=== PATIENT | female | born 1990 | race African-American/Black ===

== ENCOUNTER 2021-09-21 13:51 | Observation (INO) | payer OTHER ==
[~2021-09-21] VITALS: Ht 165.1 cm; Wt 126.9 kg
--- NOTE | 2021-09-21 15:19 | PHYS DOC ---
Past Medical History Past Surgical History: Other Additional Past Surgical Histo: Hernia repair General Adult EDM: Chief Complaint: ABDOMINAL PAIN HPI: HPI: Patient is a 31 year old female here with report of abdominal pain, which began yesterday. The pain initially began in the periumbilical area, now has traveled to the right lower quadrant. She reports nausea and vomiting and anorexia. No constipation or diarrhea reported. No urinary symptoms reported. No fevers or chills reported. She denies any trauma or injury to the area. She denies vaginal discharge or bleeding. She has irregular menses at baseline, last men strual period was in July. She has an IUD, it sounds like a copper IUD. She repeats having a previous umbilical hernia procedure when she was a child. No previous history of bowel obstruction. Review of Systems: Review of Systems: Constitutional: Denies fever or chills. [] HENT: Denies nasal congestion or sore throat. [] Respiratory: Denies cough or shortness of breath. [] Cardiovascular: Denies chest pain or edema. [] GI: Abdominal pain, nausea, vomiting. Denies constipation or diarrhea : Denies urinary symptoms. Musculoskeletal: Denies back pain or joint pain. [] Integument: Denies rash. [] Neurologic: Denies headache, focal weakness or sensory changes. [] Psychiatric: Denies depression or anxiety. [] Heart Score: C/O Chest Pain: No Risk Factors: Risk Factors: DM, Current or recent (<one month) smoker, HTN, HLP, family history of CAD, obesity. Risk Scores: Score 0 - 3: 2.5% MACE over next 6 weeks - Discharge Home Score 4 - 6: 20.3% MACE over next 6 weeks - Admit for Clinical Observation Score 7 - 10: 72.7% MACE over next 6 weeks - Early Invasive Strategies Allergies: Allergies: Allergies Coded Allergies Type Severity Reaction Last Updated Verified No Known Drug Allergies 09/21/21 No Physical Exam: PE: Constitutional: Well developed, well nourished, no acute distress, non-toxic appearance. [] HENT: Normocephalic, atraumatic Eyes: Conjunctiva normal, no discharge. Sclera are anicteric. Neck: Normal range of motion, no tenderness, supple, no stridor. Trachea is midline. Cardiovascular:Heart rate regular rhythm, +2 radial and +2 posterior tibial pulses bilaterally. Lungs & Thorax: Bilateral breath sounds clear to auscultation [] Abdomen: Abdomen is obese, soft, nondistended. Exquisite tenderness to palpation in the right lower quadrant at McBurney's, mild rebound tenderness is noted. Guarding noted. No palpable masses organomegaly. Normal bowel sounds noted. No CVA tenderness. Positive Rovsing sign. Skin: Warm, dry, no erythema, no rash. No jaundice. Back: No tenderness, no CVA tenderness. [] Extremities: No tenderness, no cyanosis, no clubbing, ROM intact, no edema. [] Neurologic: Alert and oriented X 3, normal motor function, normal sensory function, no focal deficits noted. [] Psychologic: Affect normal, judgement normal, mood normal. She is pleasant and cooperative. Current Patient Data: Vital Signs: Vital Signs Date Time Temp Pulse Resp B/P (MAP) Pulse Ox O2 Delivery O2 Flow Rate FiO2 09/21/21 14:02 98.3 101 18 134/81 (98) 96 Room Air 98.3 EKG: EKG: [] Radiology/Procedures: Radiology/Procedures: IMAGING REPORT Signed PATIENT: BRITTANY SMITH ACCOUNT: [id number] : 1990 LOCATION: ER AGE: 31 SEX: F EXAM STATUS: REG ER ORD. PHYSICIAN: RADHA CASTELLANO DO REASON: RLQ abdominal pain PROCEDURE: CT ABD PELV W/ IV CONTRST ONLY EXAM: Abdomen and pelvis CT with intravenous contrast. HISTORY: Right lower quadrant pain. TECHNIQUE: Computed tomographic images of the abdomen and pelvis were obtained following the administration of intravenous contrast. Multiplanar reformatting was performed. *One or more of the following individualized dose reduction techniques were utilized for this examination: 1. Automated exposure control. 2. Adjustment of the mA and/or kV according to patient size. 3. Use of iterative reconstruction technique. COMPARISON: None. FINDINGS: Evaluation of the lower thorax demonstrates no infiltrate or pleural effusion. There is a 7 mm cyst within the right hepatic lobe. There is no suspicious hepatic lesion. The gallbladder, pancreas, spleen, stomach, adrenal glands and kidneys are unremarkable. The appendix is mildly dilated to a caliber of 9 mm and there is slight stranding within the surrounding periappendiceal fat. There is also trace fluid within the right lower quadrant. This is superimposed on stranding within inferior peritoneum. There is no evidence of bowel obstruction. There is distal colonic diverticulosis. There is no convincing diverticulitis. The bladder is unremarkable. There is a calcification within the right hemipelvis likely due to a phlebolith. There is an IUD within the uterine cavity. There are multiple ovarian follicles and there is trace pelvic free fluid. The aorta is normal in caliber. There is no pathologically enlarged lymph node. There is degenerative change at L5-S1, with associated foraminal and central canal stenosis. IMPRESSION: Mildly dilated appendix with mild surrounding fatty stranding and trace fluid. This can be seen with acute appendicitis. However, there is gas within the appendiceal lumen which is not typical for acute appendicitis. Given the presence of diffuse peritoneal stranding within the mid and lower abdomen, the possibility of acute peritonitis with secondary inflammatory changes involving the appendix is not excluded. Correlation with laboratory values may be useful. Electronically signed by: Carole Burnett MD (09/21/2021 5:07 PM) [facility] DICTATED and SIGNED BY: CAROLE BURNETT MD DATE: 09/21/21 [id number] Course & Med Decision Making: Course & Med Decision Making Pertinent Labs and Imaging studies reviewed. (See chart for details) The patient is given IV fluids, IV Zofran, IV morphine and IV Toradol. CT indicates findings of possible appendicitis, clinically she has appendicitis. She is kept n.p.o. I ordered IV Zosyn. I explained all of the findings, differential diagnosis and plan of care with her. I recommend hospitalization, general surgery consult. She is comfortable with this. I spoke with Dr. Chavez of general surgery, who agrees with the plan of care. She is accepted for admission by Dr. Harris. Gladis Disclaimer: Gladis Disclaimer: This electronic medical record was generated, in whole or in part, using a voice recognition dictation system. Departure Departure Impression: Primary Impression: Acute appendicitis Qualified Codes: K35.80 - Unspecified acute appendicitis Disposition: ADMITTED INPATIENT Admitting Physician: KYE (Dr. Harris) Condition: STABLE Referrals: NO PCP (PCP) RADHA CASTELLANO DO Sep 21, 2021 15:19
[2021-09-21 15:40] LABS: BILIRUBIN,URINE NEGATIVE (NEG); CLARITY,URINE CLEAR; COLOR,URINE AMBER; NITRITE,URINE NEGATIVE (NEG); PH,URINE 6.5 (<5.0-8.0); PROTEIN,URINE NEGATIVE (NEG-TRACE)
[2021-09-21] MEDS ORDERED: MORPHINE SULFATE 4 MG/ML INJ. IVP ONE (15:45)
[2021-09-21] MEDS ORDERED: IV NORMAL SALINE 1000ML BAG 1,000 ML IV ONE (15:45)
[2021-09-21] MEDS ORDERED: ONDANSETRON PF 4 MG/2 ML VIAL. IVP ONE (15:45)
[2021-09-21 15:53] LABS: BACTERIA,URINE FEW /HPF (0-FEW)
[2021-09-21 15:53] LABS: BASO # 0.1 x10^3/uL (0.0-0.2); BASO % 1 % (0-3); EOS # 0.2 x10^3/uL (0.0-0.7); EOS % 2 % (0-3); HEMATOCRIT 38.9 % (36.0-47.0); HEMOGLOBIN 12.5 g/dL (12.0-15.5); LYMPH # 2.1 x10^3/uL (1.0-4.8); LYMPH % 19 % (24-48); MEAN CORPUSCULAR HEMOGLOBIN 27 pg (25-35); MEAN CORPUSCULAR HGB CONC 32 g/dL (31-37); MEAN CORPUSCULAR VOLUME 83 fL (79-100); MONO # 0.9 x10^3/uL (0.0-1.1); MONO % 8 % (0-9); NEUT % 71 % (31-73); PLATELET COUNT 225 x10^3/uL (140-400); RED BLOOD COUNT 4.68 x10^6/uL (3.50-5.40); RED CELL DISTRIBUTION WIDTH 15.3 % (11.5-14.5); WHITE BLOOD COUNT 11.3 x10^3/uL (4.0-11.0)
[2021-09-21 15:56] LABS: U PREG PATIENT NEGATIVE (NEG)
[2021-09-21] MEDS ORDERED: IOHEXOL 300 MG/ML 100ML VIAL. IV ONE (16:00)
[2021-09-21] MEDS ORDERED: CONTRAST GIVEN. MC PRN (16:15)
[2021-09-21 16:41] LABS: CALCIUM 8.3 mg/dL (8.5-10.1); CREATININE 0.8 mg/dL (0.6-1.0); POTASSIUM 3.7 mmol/L (3.5-5.1)
[2021-09-21 16:46] LABS: ALBUMIN 3.1 g/dL (3.4-5.0); ALBUMIN/GLOBULIN RATIO 0.7 (1.0-1.7); TOTAL BILIRUBIN 0.6 mg/dL (0.2-1.0); TOTAL PROTEIN 7.4 g/dL (6.4-8.2)
--- NOTE | 2021-09-21 17:10 | RAD ---
EXAM: Abdomen and pelvis CT with intravenous contrast. HISTORY: Right lower quadrant pain. TECHNIQUE: Computed tomographic images of the abdomen and pelvis were obtained following the administ ration of intravenous contrast. Multiplanar reformatting was performed. *One or more of the following individualized dose reduction techniques were utilized for this examina tion: 1. Automated exposure control. 2. Adjustment of the mA and/or kV according to patient size. 3. Use of iterative reconstruction technique. COMPARISON: None. FINDINGS: Evaluation of the lower thorax demonstrates no infiltrate or pleural effusion. There is a 7 mm cyst within the right hepatic lobe. There is no suspicious hepatic lesion. The gallbladder, pancr eas, spleen, stomach, adrenal glands and kidneys are unremarkable. The appendix is mildly dilated to a caliber of 9 mm and there is slight stranding within the surround ing periappendiceal fat. There is also trace fluid within the right lower quadrant. This is superimpo sed on stranding within inferior peritoneum. There is no evidence of bowel obstruction. There is dist al colonic diverticulosis. There is no convincing diverticulitis. The bladder is unremarkable. There is a calcification within the right hemipelvis likely due to a phl ebolith. There is an IUD within the uterine cavity. There are multiple ovarian follicles and there is trace pelvic free fluid. The aorta is normal in caliber. There is no pathologically enlarged lymph node. There is degenerative change at L5-S1, with associated foraminal and central canal stenosis. IMPRESSION: Mildly dilated appendix with mild surrounding fatty stranding and trace fluid. This can be seen with acute appendicitis. However, there is gas within the appendiceal lumen which is not typi maged for acute appendicitis. Given the presence of diffuse peritoneal stranding within the mid and low er abdomen, the possibility of acute peritonitis with secondary inflammatory changes involving the ap pendix is not excluded. Correlation with laboratory values may be useful. Electronically signed by: Carole Blount MD (09/21/2021 5:07 PM) [facility]
[2021-09-21] MEDS ORDERED: KETOROLAC 15 MG/ML VIAL. IVP ONE (17:30)
[2021-09-21] MEDS ORDERED: PIPERACILLIN/TAZOBACTAM 3.375 GM in IV NORMAL SALINE 50ML 50 ML IV ONE (17:30)
[2021-09-21] MEDS ORDERED: ONDANSETRON PF 4 MG/2 ML VIAL. IVP PRN ×2 (17:45→19:00)
[2021-09-21] MEDS ORDERED: IV DEXTROSE 5 %-0.45 % NACL 1,000 ML IV ONE (18:00)
--- NOTE | 2021-09-21 18:59 | PDOC1 ---
History and Physical Date of Service: DOS: DATE: 09/21/21 TIME: 18:55 Chief Complaint: Chief Complain: Abdominal pain History of Present Illness: HPI: 31-year-old female with her morbid obesity comes in with abdominal pain that began yesterday. Pain started in the periumbilical area and traveled to the right lower quadrant. Endorses anorexia and nausea vomiting. No history of constipation or diarrhea or dysuria. Denies chest pain or fevers or chills or trauma to the abdominal region. Patient does have an IUD. Patient also has an umbilical hernia repair as a child. Past Medical/Surgical History: PMH/PSH: No significant past medical history except for hernia repair as a child Allergies: Allergies: Coded Allergies: No Known Drug Allergies (Unverified , 09/21/21) Family History: Family History: Reviewed with no relevant findings in the chart Social History: Social History: Denies alcohol, tobacco or drug abuse Current Medications: Current Medications Current Medications Sodium Chloride 1,000 ml @ 1,000 mls/hr 1X ONCE IV Last administered on 09/21/21at 15:51; Start 09/21/21 at 15:45; Stop 09/21/21 at 16:44; Status DC Ondansetron HCl (Zofran) 4 mg 1X ONCE IVP Last administered on 09/21/21at 15:54; Start 09/21/21 at 15:45; Stop 09/21/21 at 15:46; Status DC Morphine Sulfate (Morphine Sulfate) 4 mg 1X ONCE IVP Last administered on 09/21/21at 15:55; Start 09/21/21 at 15:45; Stop 09/21/21 at 15:46; Status DC Iohexol (Omnipaque 300 Mg/ml) 75 ml 1X ONCE IV Last administered on 09/21/21at 16:45; Start 09/21/21 at 16:00; Stop 09/21/21 at 16:02; Status DC Info (CONTRAST GIVEN -- Rx MONITORING) 1 each PRN DAILY PRN MC SEE COMMENTS; Start 09/21/21 at 16:15; Stop 09/23/21 at 16:14 Piperacillin Sod/ Tazobactam Sod 3.375 gm/Sodium Chloride 50 ml @ 100 mls/hr 1X ONCE IV Last administered on 09/21/21at 17:45; Start 09/21/21 at 17:30; Stop 09/21/21 at 17:59; Status DC Ketorolac Tromethamine (Toradol 15mg Vial) 15 mg 1X ONCE IVP Last administered on 09/21/21at 17:57; Start 09/21/21 at 17:30; Stop 09/21/21 at 17:31; Status DC Ondansetron HCl (Zofran) 4 mg PRN Q8HRS PRN IVP NAUSEA/VOMITING; Start 09/21/21 at 17:45; Stop 09/22/21 at 17:44 Dextrose/Sodium Chloride 1,000 ml @ 75 mls/hr 1X ONCE IV Last administered on 09/21/21at 18:14; Start 09/21/21 at 18:00; Stop 09/22/21 at 07:19 Morphine Sulfate (Morphine Sulfate) 4 mg PRN Q2HRS PRN IVP PAIN; Start 09/21/21 at 17:45 Piperacillin Sod/ Tazobactam Sod 3.375 gm/Sodium Chloride 50 ml @ 100 mls/hr Q6HRS IV ; Start 09/22/21 at 00:00 ROS: Review of Systems Review of System REVIEW OF SYSTEMS: GENERAL: Denies weakness SKIN: No bruising, hair changes or rashes. EYES: No blurred, double or loss of vision. NOSE AND THROAT: No history of nosebleeds, hoarseness or sore throat. HEART: No history of palpitations, chest pain or shortness of breath on exertion. LUNGS: Denies cough, hemoptysis, wheezing or shortness of breath. GASTROINTESTINAL: Denies changes in appetite, nausea, vomiting, diarrhea or constipation. GENITOURINARY: No history of frequency, urgency, hesitancy or nocturia. NEUROLOGIC: Denies history of numbness, tingling, or tremor. PSYCHIATRIC: No history of panic, anxiety or depression. ENDOCRINE: No history of heat or cold intolerance, polyuria or polydipsia. EXTREMITIES: Denies joint pain, pain on walking or stiffness. Physical Exam: Vital Signs: Vital Signs Date Time Temp Pulse Resp B/P (MAP) Pulse Ox O2 Delivery O2 Flow Rate FiO2 09/21/21 17:54 92 18 145/62 (89) 98 Room Air 09/21/21 14:02 98.3 98.3 Physcial Exam: General: Well developed, well nourished, no acute distress, well appearing HEENT: Pupils equally round and reactive to light, EOMI, no discharge, normal conjunctiva Neck: Supple, no nuchal rigidity, no JVD, trachea midline, no tenderness Cardiac: RRR, no murmurs, no gallops, no rubs Chest/Lungs: CTAB, no wheeze, no rhonchi, no crackles Abdomen: soft, non-distended, no guarding, no peritoneal signs, rebound tenderness. Tenderness to palpation in the right lower quadrant and McBurney's point. There is positive peritoneal signs. Back: No tenderness Extremities: no edema, pulses intact, non-tender,capillary refill <3 sec bilateral upper and lower extremities, Neuro: Alert and oriented x 4, no focal deficits, normal speech Labs: Labs: Laboratory Tests Test 09/21/21 14:40 09/21/21 15:40 09/21/21 16:15 Urine Collection Type Unknown Urine Color Shania Urine Clarity Clear Urine pH 6.5 (<5.0-8.0) Urine Specific [place] >=1.030 (1.000-1.030) Urine Protein Negative mg/dL (NEG-TRACE) Urine Glucose (UA) Negative mg/dL (NEG) Urine Ketones (Stick) Negative mg/dL (NEG) Urine Blood Negative (NEG) Urine Nitrite Negative (NEG) Urine Bilirubin Negative (NEG) Urine Urobilinogen Dipstick 1.0 mg/dL (0.2 mg/dL) Urine Leukocyte Esterase Small (NEG) Urine RBC 1-2 /HPF (0-2) Urine WBC 5-10 /HPF (0-4) Urine Squamous Epithelial Cells Many /LPF Urine Bacteria Few /HPF (0-FEW) Urine Mucus Marked /LPF Urine Test Negative (NEG) White Blood Count 11.3 x10^3/uL (4.0-11.0) Red Blood Count 4.68 x10^6/uL (3.50-5.40) Hemoglobin 12.5 g/dL (12.0-15.5) Hematocrit 38.9 % (36.0-47.0) Mean Corpuscular Volume 83 fL (79-100) Mean Corpuscular Hemoglobin 27 pg (25-35) Mean Corpuscular Hemoglobin Concent 32 g/dL (31-37) Red Cell Distribution Width 15.3 % (11.5-14.5) Platelet Count 225 x10^3/uL (140-400) Neutrophils (%) (Auto) 71 % (31-73) Lymphocytes (%) (Auto) 19 % (24-48) Monocytes (%) (Auto) 8 % (0-9) Eosinophils (%) (Auto) 2 % (0-3) Basophils (%) (Auto) 1 % (0-3) Neutrophils # (Auto) 8.0 x10^3/uL (1.8-7.7) Lymphocytes # (Auto) 2.1 x10^3/uL (1.0-4.8) Monocytes # (Auto) 0.9 x10^3/uL (0.0-1.1) Eosinophils # (Auto) 0.2 x10^3/uL (0.0-0.7) Basophils # (Auto) 0.1 x10^3/uL (0.0-0.2) Sodium Level 137 mmol/L (136-145) Potassium Level 3.7 mmol/L (3.5-5.1) Chloride Level 104 mmol/L (98-107) Carbon Dioxide Level 24 mmol/L (21-32) Anion Gap 9 (6-14) Blood Urea Nitrogen 12 mg/dL (7-20) Creatinine 0.8 mg/dL (0.6-1.0) Estimated GFR (Cockcroft-Gault) 100.0 BUN/Creatinine Ratio 15 (6-20) Glucose Level 89 mg/dL (70-99) Calcium Level 8.3 mg/dL (8.5-10.1) Total Bilirubin 0.6 mg/dL (0.2-1.0) Aspartate Amino Transf (AST/SGOT) 15 U/L (15-37) Alanine Aminotransferase (ALT/SGPT) 19 U/L (14-59) Alkaline Phosphatase 45 U/L (46-116) Total Protein 7.4 g/dL (6.4-8.2) Albumin 3.1 g/dL (3.4-5.0) Albumin/Globulin Ratio 0.7 (1.0-1.7) Lipase 31 U/L (73-393) Laboratory Tests Test 09/21/21 14:40 09/21/21 15:40 09/21/21 16:15 Urine Collection Type Unknown Urine Color Shania Urine Clarity Clear Urine pH 6.5 (<5.0-8.0) Urine Specific [place] >=1.030 (1.000-1.030) Urine Protein Negative mg/dL (NEG-TRACE) Urine Glucose (UA) Negative mg/dL (NEG) Urine Ketones (Stick) Negative mg/dL (NEG) Urine Blood Negative (NEG) Urine Nitrite Negative (NEG) Urine Bilirubin Negative (NEG) Urine Urobilinogen Dipstick 1.0 mg/dL (0.2 mg/dL) Urine Leukocyte Esterase Small (NEG) Urine RBC 1-2 /HPF (0-2) Urine WBC 5-10 /HPF (0-4) Urine Squamous Epithelial Cells Many /LPF Urine Bacteria Few /HPF (0-FEW) Urine Mucus Marked /LPF Urine Test Negative (NEG) White Blood Count 11.3 x10^3/uL (4.0-11.0) Red Blood Count 4.68 x10^6/uL (3.50-5.40) Hemoglobin 12.5 g/dL (12.0-15.5) Hematocrit 38.9 % (36.0-47.0) Mean Corpuscular Volume 83 fL (79-100) Mean Corpuscular Hemoglobin 27 pg (25-35) Mean Corpuscular Hemoglobin Concent 32 g/dL (31-37) Red Cell Distribution Width 15.3 % (11.5-14.5) Platelet Count 225 x10^3/uL (140-400) Neutrophils (%) (Auto) 71 % (31-73) Lymphocytes (%) (Auto) 19 % (24-48) Monocytes (%) (Auto) 8 % (0-9) Eosinophils (%) (Auto) 2 % (0-3) Basophils (%) (Auto) 1 % (0-3) Neutrophils # (Auto) 8.0 x10^3/uL (1.8-7.7) Lymphocytes # (Auto) 2.1 x10^3/uL (1.0-4.8) Monocytes # (Auto) 0.9 x10^3/uL (0.0-1.1) Eosinophils # (Auto) 0.2 x10^3/uL (0.0-0.7) Basophils # (Auto) 0.1 x10^3/uL (0.0-0.2) Sodium Level 137 mmol/L (136-145) Potassium Level 3.7 mmol/L (3.5-5.1) Chloride Level 104 mmol/L (98-107) Carbon Dioxide Level 24 mmol/L (21-32) Anion Gap 9 (6-14) Blood Urea Nitrogen 12 mg/dL (7-20) Creatinine 0.8 mg/dL (0.6-1.0) Estimated GFR (Cockcroft-Gault) 100.0 BUN/Creatinine Ratio 15 (6-20) Glucose Level 89 mg/dL (70-99) Calcium Level 8.3 mg/dL (8.5-10.1) Total Bilirubin 0.6 mg/dL (0.2-1.0) Aspartate Amino Transf (AST/SGOT) 15 U/L (15-37) Alanine Aminotransferase (ALT/SGPT) 19 U/L (14-59) Alkaline Phosphatase 45 U/L (46-116) Total Protein 7.4 g/dL (6.4-8.2) Albumin 3.1 g/dL (3.4-5.0) Albumin/Globulin Ratio 0.7 (1.0-1.7) Lipase 31 U/L (73-393) Images: Images PROCEDURE: CT ABD PELV W/ IV CONTRST ONLY EXAM: Abdomen and pelvis CT with intravenous contrast. HISTORY: Right lower quadrant pain. TECHNIQUE: Computed tomographic images of the abdomen and pelvis were obtained following the administration of intravenous contrast. Multiplanar reformatting was performed. *One or more of the following individualized dose reduction techniques were utilized for this examination: 1. Automated exposure control. 2. Adjustment of the mA and/or kV according to patient size. 3. Use of iterative reconstruction technique. COMPARISON: None. FINDINGS: Evaluation of the lower thorax demonstrates no infiltrate or pleural effusion. There is a 7 mm cyst within the right hepatic lobe. There is no suspicious hepatic lesion. The gallbladder, pancreas, spleen, stomach, adrenal glands and kidneys are unremarkable. The appendix is mildly dilated to a caliber of 9 mm and there is slight stranding within the surrounding periappendiceal fat. There is also trace fluid within the right lower quadrant. This is superimposed on stranding within inferior peritoneum. There is no evidence of bowel obstruction. There is distal colonic diverticulosis. There is no convincing diverticulitis. The bladder is unremarkable. There is a calcification within the right hemipelvis likely due to a phlebolith. There is an IUD within the uterine cavity. There are multiple ovarian follicles and there is trace pelvic free fluid. The aorta is normal in caliber. There is no pathologically enlarged lymph node. There is degenerative change at L5-S1, with associated foraminal and central canal stenosis. IMPRESSION: Mildly dilated appendix with mild surrounding fatty stranding and trace fluid. This can be seen with acute appendicitis. However, there is gas within the appendiceal lumen which is not typical for acute appendicitis. Given the presence of diffuse peritoneal stranding within the mid and lower abdomen, the possibility of acute peritonitis with secondary inflammatory changes involving the appendix is not excluded. Correlation with laboratory values may be useful. Assessment/Plan Assessment/Plan Problem List: Acute abominal pain due to acute appendicitis Morbid Obesity Admit to hospitalist service for further management General surgery consult for appendectomy N.p.o. Continue IV fluids IV morphine for pain control Continue empiric IV antibiotics SCD and Lovenox for DVT prophylaxis CODE STATUS full Discussed with RN and SW Disposition on-call to the OR DPOA: Undesignated Justifications for Admission Other Justification OSVALDO FERRER MD Sep 21, 2021 18:59
[2021-09-21] MEDS ORDERED: LORazepam 0.5 MG TABLET PO PRN (19:00)
[2021-09-21] MEDS ORDERED: SENNOSIDES 8.6 MG TABLET PO PRN (19:00)
[2021-09-21] MEDS ORDERED: ACETAMINOPHEN 325 MG TABLET. PO PRN (19:00)
[2021-09-21] MEDS ORDERED: ZOLPIDEM 5 MG TABLET. PO PRN (19:00)
[2021-09-21] MEDS ORDERED: diphenhydrAMINE 50 MG/ML VIAL IVP PRN (19:00)
[2021-09-21] MEDS ORDERED: diphenhydrAMINE HCL 25 MG CAPSULE PO PRN ×2 (19:00)
[2021-09-21] MEDS ORDERED: DEXTROSE 50% 25 GM / 50ML DISP.SYRIN. IV PRN (19:00)
[2021-09-21] MEDS ORDERED: DOCUSATE SODIUM 100 MG CAPSULE. PO PRN (19:00)
[2021-09-21] MEDS ORDERED: PROCHLORPERAZINE 10 MG/2 ML VIAL. IV PRN (19:00)
[2021-09-21] MEDS ORDERED: fentaNYL PF VIAL 100 MCG/2 ML VIAL ONE (19:14)
[2021-09-21] MEDS ORDERED: DESFLURANE 61 TO 120 MINUTES IH ONE (19:14)
[2021-09-21] MEDS ORDERED: SUCCINYLCHOLINE 200 MG/10 ML VIAL. ONE (19:14)
[2021-09-21] MEDS ORDERED: ROCURONIUM 50 MG/5 ML VIAL. ONE (19:14)
[2021-09-21] MEDS ORDERED: DEXAMETHASONE SOD PHOS 4 MG/ML VIAL ONE (19:15)
[2021-09-21] MEDS ORDERED: LIDOCAINE 2% PF 5 ML VIAL. ONE ×2 (19:15→20:34)
[2021-09-21] MEDS ORDERED: ONDANSETRON PF 4 MG/2 ML VIAL. ONE (19:15)
[2021-09-21] MEDS ORDERED: PROPOFOL 10 MG/ML (20ML) VIAL. IV ONE (19:15)
[2021-09-21] MEDS ORDERED: BUPIVACAINE-EPI 0.25% 30 ML VIAL KIT. ONE (19:29)
[2021-09-21] MEDS ORDERED: fentaNYL PF VIAL 100 MCG/2 ML VIAL IVP PRN (19:30)
[2021-09-21] MEDS ORDERED: PROCHLORPERAZINE 10 MG/2 ML VIAL. IVP PRN (19:30)
[2021-09-21] MEDS ORDERED: IV RINGERS,LACTATED 1000ML 1,000 ML IV SCH (19:30)
[2021-09-21] MEDS ORDERED: HYDROmorphone 2 MG/ML INJ. IVP PRN (19:30)
--- NOTE | 2021-09-21 19:30 | PDOC2 ---
CONSULT Date of Consult Date of Consult DATE: 09/21/21 TIME: 19:23 Reason for Consult Reason for Consult: Acute appendicitis Referring Physician Referring Physician: Steven Identification/Chief Complaint Chief Complaint Right lower quadrant abdominal pain Source Source: Chart review, Patient History of Present Illness Reason for Visit: 31-year-old morbidly obese female with 24-hour history of right lower quadrant abdominal pain nausea and anorexia into the emergency room for further evaluation mildly elevated leukocytosis and CT scan of the abdomen pelvis shows dilated appendix with some fluid and periappendiceal inflammation consistent with appendicitis Past Medical History Cardiovascular: No pertinent hx Pulmonary: No pertinent hx GI: No pertinent hx Heme/Onc: No pertinent hx Hepatobiliary: No pertinent hx Psych: No pertinent hx Rheumatologic: No pertinent hx Infectious disease: No pertinent hx ENT: No pertinent hx Renal/: No pertinent hx Endocrine: No pertinent hx Dermatology: No pertinent hx Past Surgical History Past Surgical History: Hernia Repair (At age 3) Family History Family History: No Significant Social History No ALCOHOL: rare Drugs: None Current Problem List Problem List Problems Medical Problems: (1) Acute appendicitis Status: Acute Current Medications Current Medications Current Medications Sodium Chloride 1,000 ml @ 1,000 mls/hr 1X ONCE IV Last administered on 09/21/21at 15:51; Start 09/21/21 at 15:45; Stop 09/21/21 at 16:44; Status DC Ondansetron HCl (Zofran) 4 mg 1X ONCE IVP Last administered on 09/21/21at 15:54; Start 09/21/21 at 15:45; Stop 09/21/21 at 15:46; Status DC Morphine Sulfate (Morphine Sulfate) 4 mg 1X ONCE IVP Last administered on 09/21/21at 15:55; Start 09/21/21 at 15:45; Stop 09/21/21 at 15:46; Status DC Iohexol (Omnipaque 300 Mg/ml) 75 ml 1X ONCE IV Last administered on 09/21/21at 16:45; Start 09/21/21 at 16:00; Stop 09/21/21 at 16:02; Status DC Info (CONTRAST GIVEN -- Rx MONITORING) 1 each PRN DAILY PRN MC SEE COMMENTS; Start 09/21/21 at 16:15; Stop 09/23/21 at 16:14 Piperacillin Sod/ Tazobactam Sod 3.375 gm/Sodium Chloride 50 ml @ 100 mls/hr 1X ONCE IV Last administered on 09/21/21at 17:45; Start 09/21/21 at 17:30; Stop 09/21/21 at 17:59; Status DC Ketorolac Tromethamine (Toradol 15mg Vial) 15 mg 1X ONCE IVP Last administered on 09/21/21at 17:57; Start 09/21/21 at 17:30; Stop 09/21/21 at 17:31; Status DC Ondansetron HCl (Zofran) 4 mg PRN Q8HRS PRN IVP NAUSEA/VOMITING; Start 09/21/21 at 17:45; Stop 09/21/21 at 19:00; Status DC Dextrose/Sodium Chloride 1,000 ml @ 75 mls/hr 1X ONCE IV Last administered on 09/21/21at 18:14; Start 09/21/21 at 18:00; Stop 09/22/21 at 07:19 Morphine Sulfate (Morphine Sulfate) 4 mg PRN Q2HRS PRN IVP PAIN; Start 09/21/21 at 17:45 Piperacillin Sod/ Tazobactam Sod 3.375 gm/Sodium Chloride 50 ml @ 100 mls/hr Q6HRS IV ; Start 09/22/21 at 00:00 Sennosides (Senna) 17.2 mg PRN BID PRN PO CONSTIPATION; Start 09/21/21 at 19:00 Docusate Sodium (Colace) 100 mg PRN DAILY PRN PO HARD STOOLS; Start 09/21/21 at 19:00 Ondansetron HCl (Zofran) 4 mg PRN Q6HRS PRN IVP NAUSEA/VOMITING, 1st CHOICE; Start 09/21/21 at 19:00 Dextrose (Dextrose 50%-Water Syringe) 12.5 gm PRN Q15MIN PRN IV SEE COMMENTS; Start 09/21/21 at 19:00 Sodium Chloride 1,000 ml @ 100 mls/hr Q10H IV ; Start 09/22/21 at 08:00 Acetaminophen (Tylenol) 650 mg PRN Q4HRS PRN PO TEMP OVER 100.4F OR MILD PAIN; Start 09/21/21 at 19:00 Lorazepam (Ativan) 0.5 mg PRN Q6HRS PRN PO ANXIETY / AGITATION; Start 09/21/21 at 19:00 Lorazepam (Ativan Inj) 0.25 mg PRN Q4HRS PRN IV ANXIETY / AGITATION; Start 09/21/21 at 19:00 Enoxaparin Sodium (Lovenox 40mg Syringe) 40 mg Q12H SQ ; Start 09/21/21 at 21:00 Prochlorperazine Edisylate (Compazine) 10 mg PRN Q6HRS PRN IV NAUSEA/VOMITING, 2nd CHOICE; Start 09/21/21 at 19:00 Diphenhydramine HCl (Benadryl) 25 mg PRN Q6HRS PRN IVP ITCHING; Start 09/21/21 at 19:00 Diphenhydramine HCl (Benadryl) 25 mg PRN Q6HRS PRN PO ITCHING; Start 09/21/21 at 19:00 Diphenhydramine HCl (Benadryl) 25 mg PRN QHS PRN PO INSOMNIA, 1st CHOICE; Start 09/21/21 at 19:00 Zolpidem Tartrate (Ambien) 2.5 mg PRN QHS PRN PO INSOMNIA, 2nd CHOICE; Start 09/21/21 at 19:00 Desflurane (Suprane) 60 ml STK-MED ONCE IH ; Start 09/21/21 at 19:14; Stop 09/21/21 at 19:14; Status DC Succinylcholine Chloride (Ane[place]) 200 mg STK-MED ONCE .ROUTE ; Start 09/21/21 at 19:14; Stop 09/21/21 at 19:15; Status DC Rocuronium [place] (Zemuron) 50 mg STK-MED ONCE .ROUTE ; Start 09/21/21 at 19:14; Stop 09/21/21 at 19:15; Status DC Fentanyl Citrate (Fentanyl 2ml Vial) 100 mcg STK-MED ONCE .ROUTE ; Start at 19:14; Stop 09/21/21 at 19:15; Status DC Propofol (Diprivan) 200 mg STK-MED ONCE IV ; Start 09/21/21 at 19:15; Stop at 19:15; Status DC Lidocaine HCl (Lidocaine Pf 2% Vial) 5 ml STK-MED ONCE .ROUTE ; Start 09/21/21 at 19:15; Stop 09/21/21 at 19:15; Status DC Ondansetron HCl (Zofran) 4 mg STK-MED ONCE .ROUTE ; Start 09/21/21 at 19:15; Stop 09/21/21 at 19:15; Status DC Dexamethasone Sodium Phosphate (Decadron) 4 mg STK-MED ONCE .ROUTE ; Start 09/21/21 at 19:15; Stop 09/21/21 at 19:15; Status DC Allergies Allergies: Coded Allergies: No Known Drug Allergies (Unverified , 09/21/21) ROS Gastrointestinal: Yes Nausea, Yes Abdominal Pain Physical Exam General: Alert, Oriented X3, Cooperative, mild distress HEENT: Atraumatic, EOMI Lungs: Clear to auscultation, Normal air movement Heart: Regular rate, No murmurs Abdomen: Normal bowel sounds, Soft, Other (Tender right lower quadrant) Extremities: No edema Skin: No significant lesion Neuro: Normal speech Psych/Mental Status: Mental status NL Vitals VITALS Vital Signs Date Time Temp Pulse Resp B/P (MAP) Pulse Ox O2 Delivery O2 Flow Rate FiO2 09/21/21 17:54 92 18 145/62 (89) 98 Room Air 09/21/21 14:02 98.3 98.3 Labs Labs Laboratory Tests Test 09/21/21 14:40 09/21/21 15:40 09/21/21 16:15 09/21/21 18:53 Urine Collection Type Unknown Urine Color Shania Urine Clarity Clear Urine pH 6.5 (<5.0-8.0) Urine Specific [place] >=1.030 (1.000-1.030) Urine Protein Negative mg/dL (NEG-TRACE) Urine Glucose (UA) Negative mg/dL (NEG) Urine Ketones (Stick) Negative mg/dL (NEG) Urine Blood Negative (NEG) Urine Nitrite Negative (NEG) Urine Bilirubin Negative (NEG) Urine Urobilinogen Dipstick 1.0 mg/dL (0.2 mg/dL) Urine Leukocyte Esterase Small (NEG) Urine RBC 1-2 /HPF (0-2) Urine WBC 5-10 /HPF (0-4) Urine Squamous Epithelial Cells Many /LPF Urine Bacteria Few /HPF (0-FEW) Urine Mucus Marked /LPF Urine Test Negative (NEG) White Blood Count 11.3 x10^3/uL (4.0-11.0) Red Blood Count 4.68 x10^6/uL (3.50-5.40) Hemoglobin 12.5 g/dL (12.0-15.5) Hematocrit 38.9 % (36.0-47.0) Mean Corpuscular Volume 83 fL (79-100) Mean Corpuscular Hemoglobin 27 pg (25-35) Mean Corpuscular Hemoglobin Concent 32 g/dL (31-37) Red Cell Distribution Width 15.3 % (11.5-14.5) Platelet Count 225 x10^3/uL (140-400) Neutrophils (%) (Auto) 71 % (31-73) Lymphocytes (%) (Auto) 19 % (24-48) Monocytes (%) (Auto) 8 % (0-9) Eosinophils (%) (Auto) 2 % (0-3) Basophils (%) (Auto) 1 % (0-3) Neutrophils # (Auto) 8.0 x10^3/uL (1.8-7.7) Lymphocytes # (Auto) 2.1 x10^3/uL (1.0-4.8) Monocytes # (Auto) 0.9 x10^3/uL (0.0-1.1) Eosinophils # (Auto) 0.2 x10^3/uL (0.0-0.7) Basophils # (Auto) 0.1 x10^3/uL (0.0-0.2) Sodium Level 137 mmol/L (136-145) Potassium Level 3.7 mmol/L (3.5-5.1) Chloride Level 104 mmol/L (98-107) Carbon Dioxide Level 24 mmol/L (21-32) Anion Gap 9 (6-14) Blood Urea Nitrogen 12 mg/dL (7-20) Creatinine 0.8 mg/dL (0.6-1.0) Estimated GFR (Cockcroft-Gault) 100.0 BUN/Creatinine Ratio 15 (6-20) Glucose Level 89 mg/dL (70-99) Calcium Level 8.3 mg/dL (8.5-10.1) Total Bilirubin 0.6 mg/dL (0.2-1.0) Aspartate Amino Transf (AST/SGOT) 15 U/L (15-37) Alanine Aminotransferase (ALT/SGPT) 19 U/L (14-59) Alkaline Phosphatase 45 U/L (46-116) Total Protein 7.4 g/dL (6.4-8.2) Albumin 3.1 g/dL (3.4-5.0) Albumin/Globulin Ratio 0.7 (1.0-1.7) Lipase 31 U/L (73-393) SARS-CoV-2 Antigen (Rapid) Negative (NEGATIVE) Laboratory Tests Test 09/21/21 14:40 09/21/21 15:40 09/21/21 16:15 09/21/21 18:53 Urine Collection Type Unknown Urine Color Shania Urine Clarity Clear Urine pH 6.5 (<5.0-8.0) Urine Specific [place] >=1.030 (1.000-1.030) Urine Protein Negative mg/dL (NEG-TRACE) Urine Glucose (UA) Negative mg/dL (NEG) Urine Ketones (Stick) Negative mg/dL (NEG) Urine Blood Negative (NEG) Urine Nitrite Negative (NEG) Urine Bilirubin Negative (NEG) Urine Urobilinogen Dipstick 1.0 mg/dL (0.2 mg/dL) Urine Leukocyte Esterase Small (NEG) Urine RBC 1-2 /HPF (0-2) Urine WBC 5-10 /HPF (0-4) Urine Squamous Epithelial Cells Many /LPF Urine Bacteria Few /HPF (0-FEW) Urine Mucus Marked /LPF Urine Test Negative (NEG) White Blood Count 11.3 x10^3/uL (4.0-11.0) Red Blood Count 4.68 x10^6/uL (3.50-5.40) Hemoglobin 12.5 g/dL (12.0-15.5) Hematocrit 38.9 % (36.0-47.0) Mean Corpuscular Volume 83 fL (79-100) Mean Corpuscular Hemoglobin 27 pg (25-35) Mean Corpuscular Hemoglobin Concent 32 g/dL (31-37) Red Cell Distribution Width 15.3 % (11.5-14.5) Platelet Count 225 x10^3/uL (140-400) Neutrophils (%) (Auto) 71 % (31-73) Lymphocytes (%) (Auto) 19 % (24-48) Monocytes (%) (Auto) 8 % (0-9) Eosinophils (%) (Auto) 2 % (0-3) Basophils (%) (Auto) 1 % (0-3) Neutrophils # (Auto) 8.0 x10^3/uL (1.8-7.7) Lymphocytes # (Auto) 2.1 x10^3/uL (1.0-4.8) Monocytes # (Auto) 0.9 x10^3/uL (0.0-1.1) Eosinophils # (Auto) 0.2 x10^3/uL (0.0-0.7) Basophils # (Auto) 0.1 x10^3/uL (0.0-0.2) Sodium Level 137 mmol/L (136-145) Potassium Level 3.7 mmol/L (3.5-5.1) Chloride Level 104 mmol/L (98-107) Carbon Dioxide Level 24 mmol/L (21-32) Anion Gap 9 (6-14) Blood Urea Nitrogen 12 mg/dL (7-20) Creatinine 0.8 mg/dL (0.6-1.0) Estimated GFR (Cockcroft-Gault) 100.0 BUN/Creatinine Ratio 15 (6-20) Glucose Level 89 mg/dL (70-99) Calcium Level 8.3 mg/dL (8.5-10.1) Total Bilirubin 0.6 mg/dL (0.2-1.0) Aspartate Amino Transf (AST/SGOT) 15 U/L (15-37) Alanine Aminotransferase (ALT/SGPT) 19 U/L (14-59) Alkaline Phosphatase 45 U/L (46-116) Total Protein 7.4 g/dL (6.4-8.2) Albumin 3.1 g/dL (3.4-5.0) Albumin/Globulin Ratio 0.7 (1.0-1.7) Lipase 31 U/L (73-393) SARS-CoV-2 Antigen (Rapid) Negative (NEGATIVE) Assessment/Plan Assessment/Plan Acute appendicitis plan laparoscopic appendectomy DWIGHT OCONNOR MD Sep 21, 2021 19:30
[2021-09-21] MEDS ORDERED: GLYCOPYRROLATE 1 MG/5 ML VIAL. ONE (20:29)
[2021-09-21] MEDS ORDERED: NEOSTIGMINE METHYLSULFATE 5 MG/5 ML SYRINGE. ONE (20:29)
--- NOTE | 2021-09-21 20:40 | PDOC4 ---
Operative Note Operative Note Date: September 212021 at 8:37 PM Preoperative diagnosis: Acute appendicitis Postoperative diagnosis: Same Procedure: Laparoscopic appendectomy Surgeon: Scott Specimen: Appendix Dictation: Patient is a 31-year-old female with right lower quadrant abdominal pain and a CT scan showing signs of acute appendicitis. Procedure of laparoscopic appendectomy was explained to the patient detail risk benefits were also discussed including bleeding infection injury to intra-abdominal contents necessitating further open operations alternatives to this procedure also discussed with the patient who seemed to understand and gave a verbal written consent to have the procedure performed. Patient was taken to the operating room placed in the supine position general anesthesia was initiated once patient was sleeping intubated her abdomen was prepped and draped usual sterile fashion using ChloraPrep. An area just below her umbilicus was injected with quarter percent Marcaine with epinephrine incision was made 11 blade scalpel and a varies needle was placed within the abdomen creating pneumoperitoneum once this was complete 12 mm port was placed and the 5 mm camera is placed within the abdomen was noted within the right lower quadrant she had quite a bit of free fluid and some small bowel adherent to the abdominal wall the appendix was also adherent to the lateral abdominal wall. A 5 mm port was placed in the right midabdomen and a 5 mm port was placed in the lower abdomen. The small bowel adhesed to the abdominal wall was bluntly dissected off of the abdominal wall the fluid within the pelvis was suctioned dry the appendix was grasped retracted anteriorly and a window was propagated the base of appendix the mesoappendix with an [place] dissector. Endo RENATO stapler was then used to staple and transect the base of the appendix a second load was used to staple and transect the mesoappendix appendix placed in Endo Catch bag removed from the umbilicus right lower quadrant again was irrigated and suctioned dry hemostasis deemed to be appropriate the pneumoperitoneum was reduced all ports were removed the fascial defect at the umbilicus was closed with a [id number] Vicryl suture and the skin was reapproximated all port sites for subcuticular Monocryl Mastisol Steri-Strips and island dressings were applied. Patient was awakened and extubated in the operating room taken to recovery in stable condition all sponge instrument needle counts listed as correct estimated blood loss 10 mL DWIGHT OCONNOR MD Sep 21, 2021 20:40
[2021-09-21] MEDS ORDERED: oxyCODONE/APAP 5/325 1 TAB TABLET PO PRN ×2 (20:45)
[2021-09-21] MEDS: ENOXAPARIN 40 MG/0.4 ML SYRINGE. SQ SCH (21:00)
[2021-09-21] MEDS: MORPHINE SULFATE 2 MG/ML INJ. IVP PRN ×2 (21:02→21:14)
[2021-09-21] MEDS: fentaNYL PF VIAL 100 MCG/2 ML VIAL IVP PRN ×2 (21:03→21:10)
[2021-09-21] MEDS ORDERED: SEVOFLURANE 61 TO 120 MINUTES. IH ONE (21:05)
[2021-09-21 21:45] VITALS: BP 148/76
[2021-09-21 22:00] VITALS: BP 141/74
[2021-09-21 22:15] VITALS: BP 150/75
[2021-09-21 22:30] VITALS: BP 140/80
[2021-09-21] MEDS: MORPHINE SULFATE 4 MG/ML INJ. IVP PRN (22:55)
[2021-09-21 23:00] VITALS: BP 160/95
[2021-09-21 23:30] VITALS: BP 174/84
[2021-09-22] MEDS ORDERED: KETOROLAC 15 MG/ML VIAL. IVP SCH
[2021-09-22 00:30] VITALS: BP 158/89
[2021-09-22] MEDS: PIPERACILLIN/TAZOBACTAM 3.375 GM in IV NORMAL SALINE 50ML 50 ML IV SCH ×2 (00:30→05:57)
[2021-09-22] MEDS: KETOROLAC 30 MG/ML VIAL. IV SCH ×2 (00:39→05:58)
[2021-09-22] MEDS: MORPHINE SULFATE 4 MG/ML INJ. IVP PRN (01:49)
[2021-09-22 06:05] VITALS: BP 154/89
[2021-09-22 07:58] LABS: BASO % 0 % (0-3); EOS % 0 % (0-3); HEMATOCRIT 35.7 % (36.0-47.0); HEMOGLOBIN 11.6 g/dL (12.0-15.5); LYMPH # 0.9 x10^3/uL (1.0-4.8); LYMPH % 9 % (24-48); MEAN CORPUSCULAR HEMOGLOBIN 27 pg (25-35); MEAN CORPUSCULAR HGB CONC 32 g/dL (31-37); MEAN CORPUSCULAR VOLUME 84 fL (79-100); MONO # 0.6 x10^3/uL (0.0-1.1); MONO % 6 % (0-9); NEUT # 8.4 x10^3/uL (1.8-7.7); NEUT % 85 % (31-73); PLATELET COUNT 214 x10^3/uL (140-400); RED BLOOD COUNT 4.24 x10^6/uL (3.50-5.40); RED CELL DISTRIBUTION WIDTH 15.1 % (11.5-14.5); WHITE BLOOD COUNT 9.9 x10^3/uL (4.0-11.0)
[2021-09-22] MEDS ORDERED: IV NORMAL SALINE 1000ML BAG 1,000 ML IV SCH (08:00)
[2021-09-22 08:43] VITALS: BP 155/81
[2021-09-22 08:45] LABS: CREATININE 0.8 mg/dL (0.6-1.0); MAGNESIUM 1.9 mg/dL (1.8-2.4); PHOSPHORUS 3.6 mg/dL (2.6-4.7); POTASSIUM 4.1 mmol/L (3.5-5.1)
[2021-09-22] MEDS: ENOXAPARIN 40 MG/0.4 ML SYRINGE. SQ SCH (09:33)
--- NOTE | 2021-09-22 09:34 | PDOC ---
SURGICAL PROGRESS NOTE DATE: 09/22/21 TIME: 09:33 Subjective Patient states he is feeling much better tolerating diet Vital Signs Vital Signs Date Time Temp Pulse Resp B/P (MAP) Pulse Ox O2 Delivery O2 Flow Rate FiO2 09/22/21 08:43 99.7 71 20 155/81 (105) Room Air 99.7 09/22/21 06:05 95 09/21/21 21:14 6.0 I&O Intake and Output 09/22/21 07:00 Intake Total 2150 ml Output Total 110 ml Balance 2040 ml Intake IV Total 2150 ml Output Urine Total 100 ml Estimated Blood Loss 10 ml # Voids 2 PATIENT HAS A BALDERAS: No General: Alert, Oriented X3, Cooperative, mild distress Abdomen: Normal bowel sounds, Soft, Other (Mild incisional tenderness wounds clean dry and intact) Labs Laboratory Tests Test 09/21/21 14:40 09/21/21 15:40 09/21/21 16:15 09/21/21 18:53 Urine Collection Type Unknown Urine Color Shania Urine Clarity Clear Urine pH 6.5 (<5.0-8.0) Urine Specific [place] >=1.030 (1.000-1.030) Urine Protein Negative mg/dL (NEG-TRACE) Urine Glucose (UA) Negative mg/dL (NEG) Urine Ketones (Stick) Negative mg/dL (NEG) Urine Blood Negative (NEG) Urine Nitrite Negative (NEG) Urine Bilirubin Negative (NEG) Urine Urobilinogen Dipstick 1.0 mg/dL (0.2 mg/dL) Urine Leukocyte Esterase Small (NEG) Urine RBC 1-2 /HPF (0-2) Urine WBC 5-10 /HPF (0-4) Urine Squamous Epithelial Cells Many /LPF Urine Bacteria Few /HPF (0-FEW) Urine Mucus Marked /LPF Urine Test Negative (NEG) White Blood Count 11.3 x10^3/uL (4.0-11.0) Red Blood Count 4.68 x10^6/uL (3.50-5.40) Hemoglobin 12.5 g/dL (12.0-15.5) Hematocrit 38.9 % (36.0-47.0) Mean Corpuscular Volume 83 fL (79-100) Mean Corpuscular Hemoglobin 27 pg (25-35) Mean Corpuscular Hemoglobin Concent 32 g/dL (31-37) Red Cell Distribution Width 15.3 % (11.5-14.5) Platelet Count 225 x10^3/uL (140-400) Neutrophils (%) (Auto) 71 % (31-73) Lymphocytes (%) (Auto) 19 % (24-48) Monocytes (%) (Auto) 8 % (0-9) Eosinophils (%) (Auto) 2 % (0-3) Basophils (%) (Auto) 1 % (0-3) Neutrophils # (Auto) 8.0 x10^3/uL (1.8-7.7) Lymphocytes # (Auto) 2.1 x10^3/uL (1.0-4.8) Monocytes # (Auto) 0.9 x10^3/uL (0.0-1.1) Eosinophils # (Auto) 0.2 x10^3/uL (0.0-0.7) Basophils # (Auto) 0.1 x10^3/uL (0.0-0.2) Sodium Level 137 mmol/L (136-145) Potassium Level 3.7 mmol/L (3.5-5.1) Chloride Level 104 mmol/L (98-107) Carbon Dioxide Level 24 mmol/L (21-32) Anion Gap 9 (6-14) Blood Urea Nitrogen 12 mg/dL (7-20) Creatinine 0.8 mg/dL (0.6-1.0) Estimated GFR (Cockcroft-Gault) 100.0 BUN/Creatinine Ratio 15 (6-20) Glucose Level 89 mg/dL (70-99) Calcium Level 8.3 mg/dL (8.5-10.1) Total Bilirubin 0.6 mg/dL (0.2-1.0) Aspartate Amino Transf (AST/SGOT) 15 U/L (15-37) Alanine Aminotransferase (ALT/SGPT) 19 U/L (14-59) Alkaline Phosphatase 45 U/L (46-116) Total Protein 7.4 g/dL (6.4-8.2) Albumin 3.1 g/dL (3.4-5.0) Albumin/Globulin Ratio 0.7 (1.0-1.7) Lipase 31 U/L (73-393) SARS-CoV-2 RNA (ALE) Negative (Negative) SARS-CoV-2 Antigen (Rapid) Negative (NEGATIVE) Test 09/22/21 06:30 White Blood Count 9.9 x10^3/uL (4.0-11.0) Red Blood Count 4.24 x10^6/uL (3.50-5.40) Hemoglobin 11.6 g/dL (12.0-15.5) Hematocrit 35.7 % (36.0-47.0) Mean Corpuscular Volume 84 fL (79-100) Mean Corpuscular Hemoglobin 27 pg (25-35) Mean Corpuscular Hemoglobin Concent 32 g/dL (31-37) Red Cell Distribution Width 15.1 % (11.5-14.5) Platelet Count 214 x10^3/uL (140-400) Neutrophils (%) (Auto) 85 % (31-73) Lymphocytes (%) (Auto) 9 % (24-48) Monocytes (%) (Auto) 6 % (0-9) Eosinophils (%) (Auto) 0 % (0-3) Basophils (%) (Auto) 0 % (0-3) Neutrophils # (Auto) 8.4 x10^3/uL (1.8-7.7) Lymphocytes # (Auto) 0.9 x10^3/uL (1.0-4.8) Monocytes # (Auto) 0.6 x10^3/uL (0.0-1.1) Eosinophils # (Auto) 0.0 x10^3/uL (0.0-0.7) Basophils # (Auto) 0.0 x10^3/uL (0.0-0.2) Sodium Level 137 mmol/L (136-145) Potassium Level 4.1 mmol/L (3.5-5.1) Chloride Level 104 mmol/L (98-107) Carbon Dioxide Level 23 mmol/L (21-32) Anion Gap 10 (6-14) Blood Urea Nitrogen 10 mg/dL (7-20) Creatinine 0.8 mg/dL (0.6-1.0) Estimated GFR (Cockcroft-Gault) 100.0 Glucose Level 141 mg/dL (70-99) Calcium Level 8.0 mg/dL (8.5-10.1) Phosphorus Level 3.6 mg/dL (2.6-4.7) Magnesium Level 1.9 mg/dL (1.8-2.4) Laboratory Tests Test 09/21/21 14:40 09/21/21 15:40 09/21/21 16:15 09/21/21 18:53 Urine Collection Type Unknown Urine Color Shania Urine Clarity Clear Urine pH 6.5 (<5.0-8.0) Urine Specific [place] >=1.030 (1.000-1.030) Urine Protein Negative mg/dL (NEG-TRACE) Urine Glucose (UA) Negative mg/dL (NEG) Urine Ketones (Stick) Negative mg/dL (NEG) Urine Blood Negative (NEG) Urine Nitrite Negative (NEG) Urine Bilirubin Negative (NEG) Urine Urobilinogen Dipstick 1.0 mg/dL (0.2 mg/dL) Urine Leukocyte Esterase Small (NEG) Urine RBC 1-2 /HPF (0-2) Urine WBC 5-10 /HPF (0-4) Urine Squamous Epithelial Cells Many /LPF Urine Bacteria Few /HPF (0-FEW) Urine Mucus Marked /LPF Urine Test Negative (NEG) White Blood Count 11.3 x10^3/uL (4.0-11.0) Red Blood Count 4.68 x10^6/uL (3.50-5.40) Hemoglobin 12.5 g/dL (12.0-15.5) Hematocrit 38.9 % (36.0-47.0) Mean Corpuscular Volume 83 fL (79-100) Mean Corpuscular Hemoglobin 27 pg (25-35) Mean Corpuscular Hemoglobin Concent 32 g/dL (31-37) Red Cell Distribution Width 15.3 % (11.5-14.5) Platelet Count 225 x10^3/uL (140-400) Neutrophils (%) (Auto) 71 % (31-73) Lymphocytes (%) (Auto) 19 % (24-48) Monocytes (%) (Auto) 8 % (0-9) Eosinophils (%) (Auto) 2 % (0-3) Basophils (%) (Auto) 1 % (0-3) Neutrophils # (Auto) 8.0 x10^3/uL (1.8-7.7) Lymphocytes # (Auto) 2.1 x10^3/uL (1.0-4.8) Monocytes # (Auto) 0.9 x10^3/uL (0.0-1.1) Eosinophils # (Auto) 0.2 x10^3/uL (0.0-0.7) Basophils # (Auto) 0.1 x10^3/uL (0.0-0.2) Sodium Level 137 mmol/L (136-145) Potassium Level 3.7 mmol/L (3.5-5.1) Chloride Level 104 mmol/L (98-107) Carbon Dioxide Level 24 mmol/L (21-32) Anion Gap 9 (6-14) Blood Urea Nitrogen 12 mg/dL (7-20) Creatinine 0.8 mg/dL (0.6-1.0) Estimated GFR (Cockcroft-Gault) 100.0 BUN/Creatinine Ratio 15 (6-20) Glucose Level 89 mg/dL (70-99) Calcium Level 8.3 mg/dL (8.5-10.1) Total Bilirubin 0.6 mg/dL (0.2-1.0) Aspartate Amino Transf (AST/SGOT) 15 U/L (15-37) Alanine Aminotransferase (ALT/SGPT) 19 U/L (14-59) Alkaline Phosphatase 45 U/L (46-116) Total Protein 7.4 g/dL (6.4-8.2) Albumin 3.1 g/dL (3.4-5.0) Albumin/Globulin Ratio 0.7 (1.0-1.7) Lipase 31 U/L (73-393) SARS-CoV-2 RNA (ALE) Negative (Negative) SARS-CoV-2 Antigen (Rapid) Negative (NEGATIVE) Test 09/22/21 06:30 White Blood Count 9.9 x10^3/uL (4.0-11.0) Red Blood Count 4.24 x10^6/uL (3.50-5.40) Hemoglobin 11.6 g/dL (12.0-15.5) Hematocrit 35.7 % (36.0-47.0) Mean Corpuscular Volume 84 fL (79-100) Mean Corpuscular Hemoglobin 27 pg (25-35) Mean Corpuscular Hemoglobin Concent 32 g/dL (31-37) Red Cell Distribution Width 15.1 % (11.5-14.5) Platelet Count 214 x10^3/uL (140-400) Neutrophils (%) (Auto) 85 % (31-73) Lymphocytes (%) (Auto) 9 % (24-48) Monocytes (%) (Auto) 6 % (0-9) Eosinophils (%) (Auto) 0 % (0-3) Basophils (%) (Auto) 0 % (0-3) Neutrophils # (Auto) 8.4 x10^3/uL (1.8-7.7) Lymphocytes # (Auto) 0.9 x10^3/uL (1.0-4.8) Monocytes # (Auto) 0.6 x10^3/uL (0.0-1.1) Eosinophils # (Auto) 0.0 x10^3/uL (0.0-0.7) Basophils # (Auto) 0.0 x10^3/uL (0.0-0.2) Sodium Level 137 mmol/L (136-145) Potassium Level 4.1 mmol/L (3.5-5.1) Chloride Level 104 mmol/L (98-107) Carbon Dioxide Level 23 mmol/L (21-32) Anion Gap 10 (6-14) Blood Urea Nitrogen 10 mg/dL (7-20) Creatinine 0.8 mg/dL (0.6-1.0) Estimated GFR (Cockcroft-Gault) 100.0 Glucose Level 141 mg/dL (70-99) Calcium Level 8.0 mg/dL (8.5-10.1) Phosphorus Level 3.6 mg/dL (2.6-4.7) Magnesium Level 1.9 mg/dL (1.8-2.4) Problem List Problems Medical Problems: (1) Acute appendicitis Status: Acute Assessment/Plan Afebrile with normal white count. Stable from surgical standpoint can be discharged home follow-up 2 weeks no lifting more than 20 pounds for 2 weeks Justicifation of Admission Dx: Justifications for Admission: Justification of Admission Dx: N/A DWIGHT OCONNOR MD Sep 22, 2021 09:34
[2021-09-22] MEDS ORDERED: AMOX1TAB61 PO (10:56)
[2021-09-22 11:00] VITALS: BP 149/89
--- NOTE | 2021-09-22 11:00 | NUR ---
Pt. was given verbal and written discharge instructions. Pt. verbalized understanding about discharge information. Pt. states will be calling Dr. Chavez's office that is open Thursday. Pt. 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 Pt. was escorted to hospital exit in W/C with VSS.
--- NOTE | 2021-09-22 12:17 | DS ---
DATE OF DISCHARGE: 09/22/2021 ADMITTING DIAGNOSIS: Appendicitis. DISCHARGE DIAGNOSIS: Postoperative day #1 laparoscopic appendectomy. HOSPITAL COURSE: The patient is a pleasant, healthy 31-year-old female who presented with appendicitis. She was admitted. We consulted General Surgery. She was taken for laparoscopic appendectomy last night. Today, I saw and examined her. She is at her baseline and wants to go home. She is tolerating food. We plan to discharge. DISPOSITION: Home. ACTIVITY: As tolerated. DIET: Low sodium. DISCHARGE MEDICATIONS: 1. Augmentin 875 p.o. b.i.d. x 1 week. 2. P.r.n. Tylenol. TOTAL TIME: 32 minutes. DEWEY/TYRELL/SUJIT DR: Hortencia TID: [id number]
--- NOTE | 2021-09-25 15:08 | PATHOLOGY ---
[facility] Accession Number: [id number] . 01 Material submitted: . appendix - APPENDIX . 01 Clinical history: . APPENDICITIS LAPAROSCOPIC APPENDECTOMY . 02 Diagnosis: Appendix, laparoscopic appendectomy: - Serosal acute inflammation, focal. (JPM:maribell; 09/25/2021) QMS 09/25/2021 1232 Local . 02 Comment: Multiple sections of the appendix are examined. The appendiceal mucosa is intact and shows no evidence of ulceration or acute inflammation. There is no acute inflammatory cell infiltrate identified within the fibromuscular wall. There is focal serosal acute inflammation. The findings are suggestive of an inflammatory process outside of the appendix. There is no evidence of malignancy. (JPM:maribell; 09/25/2021) . 02 Electronically signed: . Guido López MD, Pathologist NPI- [id number] . 01 Gross description: . Fixative: Formalin Labeled: Appendix Perforation: None Appendix size: 7.1 cm in length by 1.0 cm in diameter Mesoappendix: An abundant amount of attached unremarkable fat Proximal margin: Inked black Serosa: [place]-felder and dusky with overlying fibrinous exudate Mucosa: Felder and unremarkable Luminal diameter: Up to 0.6 cm Wall thickness: Averages 0.3 cm Lesions/abnormalities: None . A1-A2: Electrical Lineman sections of appendix to include the proximal margin (submitted en face) and entirety of distal tip. ([facility]; 09/24/2021) DKA/DKA 09/24/2021 1027 Local . 02 Pathologist provided ICD-10: K35.80 . 02 CPT . 755175 Specimen Comment: A courtesy copy of this report has been sent to [phone] Specimen Comment: Report sent to Performed at: 01 [facility] [address] [facility] [address], [place] [id number] MD Jonnathan Stauffer MD Phone: [phone] Performed at: 02 [facility] [address] [place], [place] [id number] MD Guido López MD Phone: [phone]
== END 2021-09-22 11:35 | disposition home or self-care (01) ==
LOC: ER 13:51 → ED HOLD 18:41 → 3 SO LND 18:41
PROVIDERS: ADMIT Internal Medicine; ATTEND Internal Medicine
DX: K35.80 Unspecified acute appendicitis (principal); Z20.822 Contact with and (suspected) exposure to COVID-19; E66.01 Morbid (severe) obesity due to excess calories; K57.30 Diverticulosis of large intestine without perforation or abscess without bleeding; M48.00 Spinal stenosis, site unspecified; N92.6 Irregular menstruation, unspecified; I87.8 Other specified disorders of veins; R11.2 Nausea with vomiting, unspecified; Z79.899 Other long term (current) drug therapy; Z98.890 Other specified postprocedural states; Z68.42 Body mass index [BMI] 45.0-49.9, adult
CPT/HCPCS: 36415; 44970; 74177; 80048; 80053; 81001; 81025; 83690; 83735; 84100; 85025; 87086; 87426; 96361; 96365; 96366; 96372; 96375; 96376; 99285; A4314; A4364; A4930; G0378; J0330; J1100; J1650; J1885; J2270; J2405; J2543; J2704; J2710; J3010; J3490; J7030; J7042; J7120; Q9967; U0003; U0005; G0379